=== PATIENT | male | born 1955 | race Caucasian/White ===

== ENCOUNTER 2024-04-19 07:00 | Day surgery (SDC) | payer BC, MEDICARE ==
[~2024-04-19 07:00] MED LIST: Sodium Chloride 0.9% 10 ML Syringe FLUSH PRN
[2024-04-19] MEDS ORDERED: Propofol 200 MG/20 ML SDV IV ONE (07:01)
[2024-04-19] MEDS ORDERED: Glycopyrrolate 0.2 MG/ML 5 ML MDV IV ONE (07:01)
[2024-04-19] MEDS ORDERED: Lidocaine 2% 100 MG/5 ML Syringe IVPUSH ONE (07:01)
[2024-04-19] MEDS ORDERED: Phenylephrine 0.5% Nasal Spray 15 ML Bot NAS ONE (07:01)
[2024-04-19] MEDS: Lactated Ringers 1,000 ML IV SCH (08:05)
[2024-04-19] MEDS: Simethicone Drops 40 MG/0.6 ML 30 ML Bottle ONE (08:38)
== END 2024-04-19 09:54 | disposition home or self-care (01) ==
LOC: FB.SDS 07:00
PROVIDERS: ATTEND Surgery
DX: Z12.11 Encounter for screening for malignant neoplasm of colon (principal); D12.6 Benign neoplasm of colon, unspecified; D12.8 Benign neoplasm of rectum; K63.5 Polyp of colon; K57.30 Diverticulosis of large intestine without perforation or abscess without bleeding; I10 Essential (primary) hypertension; E11.9 Type 2 diabetes mellitus without complications; E78.5 Hyperlipidemia, unspecified; I25.10 Atherosclerotic heart disease of native coronary artery without angina pectoris; Z79.4 Long term (current) use of insulin; Z79.899 Other long term (current) drug therapy
CPT/HCPCS: 82947; 88305; A9270-GY; J1596; J2704; J7120